=== PATIENT | female | born 1960 | race Two or more races ===

== ENCOUNTER 2025-02-22 13:56 | Emergency (ER) | payer OTHER ==
[~2025-02-22] VITALS: Ht 162.6 cm; Wt 68.9 kg
[2025-02-22] MEDS ORDERED: ACID REDUCER20 M1 PO (14:07)
[2025-02-22] MEDS ORDERED: FOSAMAX70 MG PO (14:07)
[2025-02-22] MEDS ORDERED: CRESTOR40 MG PO (14:07)
[2025-02-22 14:08] VITALS: BP 127/78; O2SAT 97
[2025-02-22] MEDS ORDERED: ZESTRIL20 MG (14:08)
[2025-02-22] MEDS ORDERED: SYNTHROID75 MCG PO (14:08)
[2025-02-22] MEDS ORDERED: 0.9 % SODIUM CHLORIDE 1,000 ML IV ONE (15:45)
[2025-02-22 16:15] LABS: BASO % 0.3 % (0.1-1.2); EOS # 0.00 (0.04-0.54); EOS % 0.0 % (0.7-7.0); LYMPH # 0.51 (1.18-3.74); LYMPH % 6.6 % (19.3-53.1); MEAN PLATELET VOLUME 9.70 fl (9.4-12.4); MONO # 0.21 (0.24-0.82); MONO % 2.7 % (4.7-12.5); NEUT # 6.92 (1.56-6.13); NEUT % 90.0 % (34.0-71.1); RED CELL DISTRIBUTION WIDTH 11.9 % (11.6-14.4)
[2025-02-22 16:43] LABS: ALT/SGPT 55.0 U/L (12-78); AST/SGOT 65.0 U/L (15-37); BILIRUBIN TOTAL 0.45 mg/dL (0.3-1.2); BUN CREA RATIO 17.0 (7.0-25.0); CREATININE SERUM 0.82 mg/dL (0.55-1.02); GFR 69.53; GLOBULINA 4.5 G/DL (2.4-3.5); GLUCOSE FASTING 109.0 mg/dL (65-100); OSMOLALITY SERUM 277.0 MOSM/KG (275-295)
[2025-02-22 16:58] LABS: COVID-19 AG NEGATIVE (NEGATIVE)
[2025-02-22] MEDS ORDERED: LEVOFLOXACIN500 MG PO (18:07)
[2025-02-22] MEDS ORDERED: ZOFRAN8 MG PO (18:07)
[2025-02-22] MEDS ORDERED: PEPCID AC20 MG PO (18:16)
== END 2025-02-22 18:50 | disposition home or self-care (01) ==
LOC: ER 13:57
PROVIDERS: Preventive Medicine Public Health & General Preventive Medicine
DX: K52.9 Noninfective gastroenteritis and colitis, unspecified (principal); R11.10 Vomiting, unspecified; R10.9 Unspecified abdominal pain; Z20.822 Contact with and (suspected) exposure to COVID-19; I10 Essential (primary) hypertension; E03.8 Other specified hypothyroidism; Z88.6 Allergy status to analgesic agent
CPT/HCPCS: 36415; 96365; 96366; 99282; J7030